=== PATIENT | female | born 1975 | race Caucasian/White ===

== ENCOUNTER 2020-08-15 10:28 | Emergency (ER) | payer BC ==
[2020-08-15] MEDS ORDERED: Ondansetron 4 MG/2 ML SDV IVPUSH ONE (10:56)
[2020-08-15] MEDS ORDERED: Sodium Chloride 0.9% 1,000 ML IV ONE (10:56)
[2020-08-15 11:03] VITALS: PULSE 75
--- NOTE | 2020-08-15 11:03 | EDM.PDOC ---
ED HPI GENERAL MEDICAL PROBLEM - General Chief Complaint: Gastrointestinal Problem Stated Complaint: SICK Time Seen by Provider: 08/15/20 10:35 Source of Information: Reports: Patient History Limitations: Reports: No Limitations - History of Present Illness INITIAL COMMENTS - FREE TEXT/NARRATIVE: HISTORY AND PHYSICAL: History of present illness: Patient is a 45-year-old female presents to the ED for concerns of vomiting and diarrhea x 4 days. Patient states that beginning Friday morning, she ate ice cream and began vomiting within 1 hour. She states that she has had int ermittent vomiting after eating with l diarrhea, decreased appetite but still able to eat and drink throughout the day. She states she did have an episode of chest pain yesterday associated with vomiting but states that she has not had this since. She states her last episode of vomiting was last night and diarrhea this morning and watery. She denies any known ill contacts or history of similar symptoms. Patient states that she has started having some blood in her diarrhea but states that she does have a hemorrhoid at this time and is applying Preparation H [id number]. Patient states she has a history of frequent hemorrhoids and that this is not unusual for her. Patient denies shortness of breath, sore throat, change in sense of smell/taste, or cough. Denies headache, neck stiff ness, change in vision, syncope, or near syncope. Denies abdominal pain, constipation, or dysuria. Has not noted any blood in urine. Patient states that she was eating and drinking appropriately prior to symptom onset. Review of systems: As per history of present illness and below otherwise all systems reviewed and negative. Past medical history: As per history of present illness and as reviewed below otherwise noncontributory. Surgical history: As per history of present illness and as reviewed below otherwise noncontributory. Social history: See social history for further information Family history: As per history of present illness and as reviewed below otherwise noncontributory. Physical exam: General: Patient is alert, oriented, and in no acute distress. Patient sitting comfortably on exam table. Vitals stable and reviewed by me. HEENT: Atraumatic, normocephalic, pupils equal and reactive bilaterally, negative for conjunctival pallor or scleral icterus, mucous membranes moist, TMs normal bilaterally, throat clear, neck supple, nontender, trachea midline. No drooling or trismus noted. No meningeal signs. No hot potato voice noted. Lungs: Clear to auscultation, breath sounds equal bilaterally, chest nontender. Heart: S1S2, regular rate and rhythm without overt murmur Abdomen: Soft, nondistended, nontender. Negative for masses or hepatosplenomegaly. Negative for costovertebral tenderness. Pelvis: Stable nontender. Genitourinary: Deferred. Rectal: Deferred. (Patient declines rectal exam-all risks vs benefits discussed and expresses understanding) Skin: Intact, warm, dry. No lesions or rashes noted. Extremities: Atraumatic, negative for cords or calf pain. Neurovascular unremarkable. Neuro: Awake, alert, oriented. Cranial nerves II through XII unremarkable. Cerebellum unremarkable. Motor and sensory unremarkable throughout. Exam nonfocal. Notes: On initial exam, patient is vitally stable and nontoxic, in no acute distress. Will obtain routine lab work today and cardiac evaluation due to chest pain episode yesterday. Patient is declining a rectal exam. All risks versus benefits discussed with patient and expresses understanding. Unable to obtain Hemoccult as patient declines this. Patient has not had any episodes of vomiting or diarrhea today in the emergency room. We were unable to collect a stool sample as she has not had any need to have a bowel movement. Patient is able to tolerate p.o. intake in the ED today with therapeutics. Discussed importance for follow-up with her primary care provider this week and for reevaluation of her potassium. Patient has been sent home with stool collection supplies and a prescription for outpatient stool sample. Strict return precautions thoroughly discussed with patient. Discussed importance for follow-up with her primary care provider. Voices understanding and is agreeable to plan of care. Denies any further questions or concerns at this time. Diagnostics: EKG, CBC, CMP, UA,, urine hCG, lipase troponin, CXR, ova and parasite, stool culture/shiga C. difficile Therapeutics: NS, Zofran, Potassium Prescription: Zofran Impression: Diarrhea Vomiting, improved Hypokalemia Plan: 1. Take medication as prescribed. Encourage small but frequent sips of fluid to prevent dehydration. 2. Stool collection supplies have been provided to you. Once you are able to leave a stool sample, return this to our lab for further evaluation. 3. Follow-up with a primary care provider as discussed. Return to the ED as needed and as discussed. Definitive disposition and diagnosis as appropriate pending reevaluation and review of above. - Related Data Allergies Allergy/AdvReac Type Severity Reaction Status Date / Time codeine Allergy Anaphylactic Verified 08/15/20 11:00 Shock corn Allergy Other Verified 08/15/20 11:00 meperidine HCl [From Demerol] Allergy Anaphylactic Verified 08/15/20 11:00 Shock Home Meds: Home Meds Desloratidine [Clarinex] 1 tab PO DAILY 09/28/14 [History] Fluticasone Propionate [Flonase] 1 spray INH DAILY 09/28/14 [History] Budesonide/Formoterol Fumarate [Symbicort 160-4.5 Mcg Inhaler] 1 puff INH Q4H 08/15/20 [History] Ondansetron [Zofran ODT] 4 mg PO Q6H PRN #8 tab.dis 08/15/20 [Rx] estradioL [Estradiol] 0.5 mg PO DAILY 08/15/20 [History] ED ROS GENERAL - Review of Systems Review Of Systems: Comprehensive ROS is negative, except as noted in HPI. ED EXAM, GENERAL - Physical Exam Exam: See Below (See dictation) Course - Vital Signs Last Recorded V/S: Last Vital Signs Temp 98.6 F 08/15/20 11:01 Pulse 75 08/15/20 11:01 Resp 18 08/15/20 11:01 BP 151/78 H 08/15/20 11:01 Pulse Ox 95 08/15/20 11:01 - Orders/Labs/Meds Orders: Active Orders 24 hr Category Date Time Status EKG Documentation Completion [RC] STAT Care 08/15/20 10:59 Active C DIFFICILE AG/TOXIN W/REFLEX [RM] Stat Lab 08/15/20 10:57 Ordered HCG QUALITATIVE,URINE [URCHEM] Stat Lab 08/15/20 10:56 Ordered OVA & PARASITES BY IMMUNOASSAY [MREF] Stat Lab 08/15/20 10:57 Ordered STOOL CULTURE/SHIGA TOXIN [MREF] Stat Lab 08/15/20 10:57 Ordered UA RFX ROHAN AND CULT IF INDIC [URIN] Stat Lab 08/15/20 10:56 Ordered Labs: Laboratory Tests 08/15/20 08/15/20 08/15/20 Range/Units 11:10 11:10 11:27 WBC 6.47 (4.0-11.0) K/uL RBC 4.95 (4.30-5.90) M/uL Hgb 15.0 (12.0-16.0) g/dL Hct 43.2 (36.0-46.0) % MCV 87.3 (80.0-98.0) fL MCH 30.3 (27.0-32.0) pg MCHC 34.7 (31.0-37.0) g/dL RDW Std Deviation 41.4 (28.0-62.0) fl RDW Coeff of Danny 13 (11.0-15.0) % Plt Count 243 (150-400) K/uL MPV 10.80 (7.40-12.00) fL Neut % (Auto) 63.4 (48.0-80.0) % Lymph % (Auto) 21.5 (16.0-40.0) % [place] % (Auto) 10.4 (0.0-15.0) % Eos % (Auto) 4.2 (0.0-7.0) % Baso % (Auto) 0.5 (0.0-1.5) % Neut # (Auto) 4.1 (1.4-5.7) K/uL Lymph # (Auto) 1.4 (0.6-2.4) K/uL [place] # (Auto) 0.7 (0.0-0.8) K/uL Eos # (Auto) 0.3 (0.0-0.7) K/uL Baso # (Auto) 0.0 (0.0-0.1) K/uL Nucleated RBC % 0.0 /100WBC Nucleated RBCs # 0 K/uL Sodium 140 (136-145) mmol/L Potassium 3.0 L (3.5-5.1) mmol/L Chloride 103 (98-107) mmol/L Carbon Dioxide 24.2 (21.0-32.0) mmol/L BUN 9 (7.0-18.0) mg/dL Creatinine 1.0 (0.6-1.0) mg/dL Est Cr Clr Drug Dosing 69.09 mL/min Estimated GFR (MDRD) 60.0 ml/min Glucose 126 H (74-106) mg/dL Calcium 8.6 (8.5-10.1) mg/dL Total Bilirubin 0.6 (0.2-1.0) mg/dL AST 26 (15-37) IU/L ALT 32 (14-63) IU/L Alkaline Phosphatase 86 (46-116) U/L Troponin I < 0.050 (0.000-0.056) ng/mL Total Protein 7.4 (6.4-8.2) g/dL Albumin 3.6 (3.4-5.0) g/dL Globulin 3.8 (2.6-4.0) g/dL Albumin/Globulin Ratio 0.9 (0.9-1.6) Lipase 133 (73-393) U/L Influenza Type A RNA NEGATIVE (NEGATIVE) Influenza Type B RNA NEGATIVE (NEGATIVE) SARS-CoV-2 RNA (ESDRAS) NEGATIVE (NEGATIVE) Meds: Medications Discontinued Medications Generic Name Dose Route Start Last Admin Trade Name Freq PRN Reason Stop Dose Admin Sodium Chloride 1,000 mls @ 999 mls/hr 08/15/20 10:56 08/15/20 13:13 Normal Saline IV 08/15/20 11:56 999 mls/hr BOLUS ONE Administration Ondansetron HCl 4 mg 08/15/20 10:56 08/15/20 13:14 Ondansetron 4 Mg/2 Ml Sdv IVPUSH 08/15/20 10:57 4 mg ONETIME ONE Administration Potassium Chloride 40 meq 08/15/20 12:39 08/15/20 13:13 Potassium Chloride 20 Meq Tab.Er PO 08/15/20 12:40 40 meq ONETIME ONE Administration Departure - Departure Time of Disposition: 13:46 Disposition: Home, Self-Care 01 Clinical Impression: Hypokalemia Diarrhea Qualifiers: Diarrhea type: unspecified type Qualified Code(s): R19.7 - Diarrhea, unspecified Vomiting Qualifiers: Vomiting type: unspecified Vomiting Intractability: non-intractable Nausea presence: with nausea Qualified Code(s): R11.2 - Nausea with vomiting, unspecified - Discharge Information Referrals: Robert Banda MD [Primary Care Provider] - Forms: ED Department Discharge Additional Instructions: The following information is given to patients seen in the emergency department who are being discharged to home. This information is to outline your options for follow-up care. We provide all patients seen in our emergency department with a follow-up referral. The need for follow-up, as well as the timing and circumstances, are variable depending upon the specifics of your emergency department visit. If you don't have a primary care physician on staff, we will provide you with a referral. We always advise you to contact your personal physician following an emergency department visit to inform them of the circumstance of the visit and for follow-up with them and/or the need for any referrals to a consulting specialist. The emergency department will also refer you to a specialist when appropriate. This referral assures that you have the opportunity for follow-up care with a specialist. All of these measure are taken in an effort to provide you with optimal care, which includes your follow-up. Under all circumstances we always encourage you to contact your private physician who remains a resource for coordinating your care. When calling for follow-up care, please make the office aware that this follow-up is from your recent emergency room visit. If for any reason you are refused follow-up, please contact the [facility] Emergency Department at and asked to speak to the emergency department charge nurse. [facility] [address] [place] [address] [place] [address] 1. Take medication as prescribed. Encourage small but frequent sips of fluid to prevent dehydration. 2. Stool collection supplies have been provided to you. Once you are able to leave a stool sample, return this to our lab for further evaluation. 3. Follow-up with a primary care provider as discussed. Return to the ED as needed and as discussed. Sepsis Event Note (ED) - Focused Exam Vital Signs: Vital Signs Temp Pulse Resp BP Pulse Ox 08/15/20 11:01 98.6 F 75 18 151/78 H 95 - My Orders Last 24 Hours: My Active Orders 08/15/20 10:56 HCG QUALITATIVE,URINE [URCHEM] Stat UA RFX ROHAN AND CULT IF INDIC [URIN] Stat 08/15/20 10:57 C DIFFICILE AG/TOXIN W/REFLEX [RM] Stat OVA & PARASITES BY IMMUNOASSAY [MREF] Stat STOOL CULTURE/SHIGA TOXIN [MREF] Stat 08/15/20 10:59 EKG Documentation Completion [RC] STAT - Assessment/Plan Last 24 Hours: My Active Orders 08/15/20 10:56 HCG QUALITATIVE,URINE [URCHEM] Stat UA RFX ROHAN AND CULT IF INDIC [URIN] Stat 08/15/20 10:57 C DIFFICILE AG/TOXIN W/REFLEX [RM] Stat OVA & PARASITES BY IMMUNOASSAY [MREF] Stat STOOL CULTURE/SHIGA TOXIN [MREF] Stat 08/15/20 10:59 EKG Documentation Completion [RC] STAT
[2020-08-15 11:54] LABS: BLOOD UREA NITROGEN,BUN 9 mg/dL (7.0-18.0); CARBON DIOXIDE,CO2 24.2 mmol/L (21.0-32.0); CHLORIDE,CL 103 mmol/L (98-107); GLUCOSE RANDOM 126 mg/dL (74-106); LIPASE 133 U/L (73-393); SODIUM,NA 140 mmol/L (136-145)
[2020-08-15 12:27] LABS: CORONAVIRUS COVID-19 NAA NEGATIVE (NEGATIVE); INFLUENZA A NAA NEGATIVE (NEGATIVE); INFLUENZA B NAA NEGATIVE (NEGATIVE)
[2020-08-15] MEDS ORDERED: Potassium Chloride 20 MEQ Tab.ER PO ONE (12:39)
--- NOTE | 2020-08-15 13:09 | PCM.EKG ---
#1 Interpretation EKG Date: 08/15/20 Time: 11:55 Rhythm: NSR Rate (Beats/Min): 71 [place]: Normal ST-T: Normal
--- NOTE | 2020-08-15 13:29 | CR ---
indication: Pain Comparison: Two-view chest August 01, 2015 Technique: Single AP view chest Findings: There is hyperinflation and chronic interstitial change. There is no focal consolidation, effusion, or pneumothorax. The cardiomediastinal silhouette is within normal limits. The bony thorax is grossly intact. Impression: No acute cardiopulmonary abnormality. Dictated by Dong Salazar MD @ Aug 15 2020 1:24PM Signed by Dr. Dong Salazar @ Aug 15 2020 1:28PM
[2020-08-15 14:04] VITALS: BP 140/85
== END 2020-08-15 14:05 | disposition home or self-care (01) ==
LOC: MW.ED 10:28
DX: R11.2 Nausea with vomiting, unspecified (principal); E87.6 Hypokalemia; R19.7 Diarrhea, unspecified; Z88.5 Allergy status to narcotic agent; Z91.018 Allergy to other foods; Z88.8 Allergy status to other drugs, medicaments and biological substances; Z20.822 Contact with and (suspected) exposure to COVID-19
CPT/HCPCS: 0240U; 36415; 71045; 80053; 83690; 84484; 85025; 93005; 96374; 99284; A9270; J2405; J7030; 93010; 99283